=== PATIENT | male | born 1940 | race Caucasian/White ===

== ENCOUNTER 2016-12-23 09:38 | Outpatient (CLI) | payer MEDICARE, OTHER ==
[2016-12-23 17:41] LABS: Albumin (w/Testosterone Panel) 4.1 g/dL
[2016-12-23 18:06] LABS: Sex Hormone Binding Globulin 66.8 nmol/L (11-78); Testosterone, Free 134.7 pg/mL (47-244); Testosterone, Total 915.6 ng/dL (221-716)
[2016-12-25 11:13] LABS: Total PSA 7.3 ng/mL (0.0-4.0)
== END 2016-12-23 09:39 | disposition home or self-care (01) ==
LOC: MADLAB 09:38
PROVIDERS: ATTEND Urology
DX: N48.9 Disorder of penis, unspecified (principal)
CPT/HCPCS: 36415; 84153; 84154; 84270; 84403